=== PATIENT | male | born 1955 | race Caucasian/White ===

== ENCOUNTER 2025-04-27 16:49 | Inpatient (IN) | payer OTHER, MEDICAID, MEDICARE ==
[~2025-04-27] VITALS: Ht 165.1 cm; Wt 106.7 kg
[2025-04-27] VITALS (39 sets, daily range): BP systolic 46–155; BP diastolic 15–133; PULSE 73–99; RESP 10–50; TEMP 33–34.6; O2SAT 0–100
[~2025-04-27 16:49] MED LIST: CALCIUM CHLORIDE 1GM/10ML SYR IV ONE; EPINEPHRINE 0.1MG/ML (1:10,000) 10ML SYR ONE; SODIUM BICARBONATE 8.4% 50MEQ/50ML SYR IV ONE
[2025-04-27] MEDS ORDERED: EPINEPHRINE 5 MG in SODIUM CHLORIDE 0.9% 245 ML IV SCH (17:00)
[2025-04-27 17:16] LABS: MEAN PLATELET VOLUME 8.5 fl (7.4-10.4); RED BLOOD CELL COUNT 1.57 mill/uL (4.7-6.1); RED CELL DISTRIBUTION WIDTH 19.6 % (11.6-14.6)
[2025-04-27 17:26] LABS: HEMATOCRIT. 20.1 % (42.0-52.0); HEMOGLOBIN. 6.6 g/dL (14.0-18.0); PLATELET 17 x1000/uL (130-400)
[2025-04-27 17:30] LABS: CREATININE 1.3 mg/dL (0.6-1.3)
[2025-04-27 17:31] LABS: UREA NITROGEN BLOOD 46 mg/dL (9-23)
[2025-04-27 17:32] LABS: ASPARTATE AMINOTRANSFERASE 178 IU/L (<34); TROPONIN I HIGH SENSITIVITY 5 ng/L (3.0-53)
[2025-04-27 17:33] LABS: BILIRUBIN DIRECT 2.1 mg/dL (<=3.0); BILIRUBIN TOTAL 3.1 mg/dL (0.1-1.0); PROTEIN TOTAL 4.1 g/dL (6.0-8.3)
[2025-04-27 17:41] LABS: LYMPHOCYTES % MANUAL 82.0 % (20.0-50.0); MONOCYTES % MANUAL 6.0 % (2.0-8.0); NEUTROPHILS % MANUAL 12.0 % (45.0-75.0); NUCLEATED RED BLOOD CELLS 8 /100 WBC; PLATELET ESTIMATE MARKEDLY DECREASED
[2025-04-27] MEDS: SODIUM CHLORIDE 0.9% 1,000 ML IV ONE ×2 (17:44)
[2025-04-27] MEDS ORDERED: VANCOMYCIN 1000MG/250ML 250 ML IV SCH (17:45)
[2025-04-27] MEDS: CEFEPIME 2,000 MG in DEXT 5% WATER 100 ML IV SCH (17:47)
[2025-04-27 17:54] LABS: BG BASE EXCESS -9.5 mmol/L (-2.0-3.0); BG CARBOXYHEMOGLOBIN 1.5 % (0.5-1.5); BG DEOXYHEMOGLOBIN 14.6 % (0.0-5.0); BG FRACTION INSPIRED OXYGEN 100; BG HCO3 ACT 19.1 mmol/L (21.0-28.0); BG METHEMOGLOBIN 0.8 % (0.5-1.5); BG OXYGEN SATURATION 85.1 % (94.0-98.0); BG OXYHEMOGLOBIN 83.1 % (94.0-98.0); BG PCO2 58.4 mmHg (35.0-48.0); BG PEEP (cmH2O) 10.0 cmH2O; BG PH 7.132 (7.350-7.450); BG PO2 70.9 mmHg (83.0-108.0); BG SAMPLE SITE LEFT RADIAL; BG TIDAL VOLUME(mL) 450.0 mL; BG TOTAL HEMOGLOBIN 7.1 g/dL (13.5-17.5); BG VENT MODE VENT - AC; BG VENT RATE 16.0 set
[2025-04-27] MEDS ORDERED: SODIUM BICARBONATE 100 MEQ in SODIUM CHLORIDE 0.45% 900 ML IV SCH (18:00)
[2025-04-27] MEDS ORDERED: KETAMINE HCL 100 MG in SODIUM CHLORIDE 0.9% 98 ML IV ONE (18:15)
[2025-04-27] MEDS: ALBUTEROL (0.5%) 2.5MG/0.5ML NEB HHN ONE (18:20)
[2025-04-27] MEDS: KETAMINE HCL 100 MG in SODIUM CHLORIDE 0.9% 98 ML IV ONE (18:40)
[2025-04-27] MEDS: EPINEPHRINE 5 MG in SODIUM CHLORIDE 0.9% 245 ML IV PRN ×2 (18:40→21:30)
[2025-04-27] MEDS: DEXTROSE 50% WATER 50ML SYRINGE IV ONE (18:55)
[2025-04-27] MEDS: INSULIN REGULAR (HUMULIN R) 1000UNITS/10ML VIAL IV ONE (19:00)
[2025-04-27] MEDS: VANCOMYCIN 1G PREMIX 200 ML IV SCH (19:10)
[2025-04-27] MEDS ORDERED: ACETAMINOPHEN 650MG/20.3ML UDC NG PRN (19:15)
[2025-04-27] MEDS ORDERED: ACETAMINOPHEN 650MG SUPP PR PRN (19:15)
[2025-04-27] MEDS: FUROSEMIDE 40MG/4ML VIAL IVP ONE (19:30)
[2025-04-27] MEDS: MIDAZOLAM HCL 2 MG/2 ML VIAL IV ONE (19:32)
[2025-04-27] MEDS ORDERED: ONDANSETRON HCL 4MG/2ML INJ IV PRN ×2 (20:00)
[2025-04-27] MEDS ORDERED: LACTULOSE 20G/30ML UDC PO PRN (20:00)
[2025-04-27] MEDS ORDERED: IPRATROPIUM/ALBUTEROL 0.5-3(2.5)MG/3ML NEB HHN PRN ×2 (20:00)
[2025-04-27 20:05] LABS: MEAN PLATELET VOLUME 8.5 fl (7.4-10.4); RED BLOOD CELL COUNT 1.54 mill/uL (4.7-6.1); RED CELL DISTRIBUTION WIDTH 21.2 % (11.6-14.6)
[2025-04-27 20:15] LABS: PLATELET 14 x1000/uL (130-400)
[2025-04-27 20:16] LABS: HEMATOCRIT. 20.7 % (42.0-52.0); HEMOGLOBIN. 6.6 g/dL (14.0-18.0)
[2025-04-27 20:20] LABS: CREATININE 1.3 mg/dL (0.6-1.3); UREA NITROGEN BLOOD 35 mg/dL (9-23)
[2025-04-27 20:21] LABS: TROPONIN I HIGH SENSITIVITY 22 ng/L (3.0-53)
[2025-04-27 20:22] LABS: PHOSPHORUS 6.0 mg/dL (2.5-4.9)
[2025-04-27 20:25] LABS: INR 1.7
[2025-04-27 20:34] LABS: LYMPHOCYTES % MANUAL 36.0 % (20.0-50.0); MONOCYTES % MANUAL 12.0 % (2.0-8.0); NEUTROPHILS % MANUAL 52.0 % (45.0-75.0); NUCLEATED RED BLOOD CELLS 5 /100 WBC; PLATELET ESTIMATE MARKEDLY DECREASED
[2025-04-27] MEDS: NOREPINEPHRINE 8MG/250ML PMX 250 ML IV PRN (21:30)
[2025-04-27] MEDS ORDERED: IPRATROPIUM/ALBUTEROL 0.5-3(2.5)MG/3ML NEB NEB PRN (22:00)
[2025-04-27] MEDS: NOREPINEPHRINE 32 MG in DEXT 5% WATER 218 ML IV PRN (22:40)
[2025-04-27] MEDS: DEXTROSE 50% WATER 50ML SYRINGE IV SCH (22:57)
[2025-04-27] MEDS: CALCIUM GLUCONATE 100MG/ML 10ML VIAL IV SCH (22:58)
[2025-04-27] MEDS: INSULIN REGULAR (HUMULIN R) 1000UNITS/10ML VIAL IV SCH (22:59)
[2025-04-27] MEDS: PANTOPRAZOLE SODIUM 40 MG/VIAL IV SCH (22:59)
[2025-04-27] MEDS: SODIUM CHLORIDE 0.9% 1,000 ML IV SCH (22:59)
[2025-04-27 23:31] LABS: BG BASE EXCESS -16.6 mmol/L (-2.0-3.0); BG CARBOXYHEMOGLOBIN 0.8 % (0.5-1.5); BG DEOXYHEMOGLOBIN 1.8 % (0.0-5.0); BG FRACTION INSPIRED OXYGEN 100; BG HCO3 ACT 13.1 mmol/L (21.0-28.0); BG METHEMOGLOBIN 0.5 % (0.5-1.5); BG OXYGEN SATURATION 98.2 % (94.0-98.0); BG OXYHEMOGLOBIN 96.9 % (94.0-98.0); BG PCO2 49.6 mmHg (35.0-48.0); BG PEEP (cmH2O) 0 cmH2O; BG PH 7.039 (7.350-7.450); BG PO2 147.7 mmHg (83.0-108.0); BG SAMPLE SITE RIGHT RADIAL; BG TIDAL VOLUME(mL) 450.0 mL; BG TOTAL HEMOGLOBIN 8.3 g/dL (13.5-17.5); BG VENT MODE PRVC/AC; BG VENT RATE 20.0 set
[2025-04-28] VITALS (104 sets, daily range): BP systolic 47–188; BP diastolic 30–149; PULSE 76–104; RESP 10–28; TEMP 34.5–36.3; O2SAT 92–100
[2025-04-28] MEDS: SODIUM BICARBONATE 100 MEQ in DEXTROSE 5% WATER 900 ML IV SCH (01:42)
[2025-04-28] MEDS: CEFEPIME 2GM PREMIX 100ML IV SCH (02:58)
[2025-04-28] MEDS: METRONIDAZOLE 500 MG PREMIX 100 ML IV SCH (02:59)
[2025-04-28] MEDS: PHENYLEPHRINE 50MG/250ML PMX 250 ML IV PRN (04:35)
[2025-04-28] MEDS: VASOPRESSIN 20 UNIT in SODIUM CHLORIDE 0.9% 99 ML IV PRN (05:38)
[2025-04-28] MEDS: EPINEPHRINE 10 MG in SODIUM CHLORIDE 0.9% 240 ML IV PRN (05:43)
[2025-04-28] MEDS ORDERED: CEFEPIME 2GM IN DEXT 5% 100ML IV SCH (06:00)
[2025-04-28 06:01] LABS: CLARITY URINE TURBID (CLEAR); COLOR URINE DARK YELLOW (YELLOW); GLUCOSE URINE NEGATIVE (NEGATIVE); KETONES URINE NEGATIVE (NEGATIVE); LEUKOCYTE ESTERASE URINE 2+ (NEGATIVE); NITRITE URINE NEGATIVE (NEGATIVE); OCCULT BLOOD URINE 3+ (NEGATIVE); PH URINE 5.5 (4.5-8.0); PROTEIN URINE 2+ (NEGATIVE); SPECIFIC GRAVITY URINE 1.017 (1.005-1.030); UROBILINOGEN URINE 1.0 E.U./dL (0.2-1.0)
[2025-04-28] MEDS ORDERED: LACTULOSE ENEMA 1,000ML BOTTLE PR NR (06:17)
[2025-04-28 06:46] LABS: *AMPHETAMINES SCREEN URINE NEGATIVE (NEGATIVE)
[2025-04-28 06:47] LABS: *BARBITURATES SCREEN URINE NEGATIVE (NEGATIVE); *BENZODIAZEPINES SCREEN URINE NEGATIVE (NEGATIVE); *COCAINE SCREEN URINE NEGATIVE (NEGATIVE); CANNABINOID URINE SCREEN NEGATIVE (NEGATIVE); ECSTASY MDMA SCREEN URINE NEGATIVE (NEGATIVE); METHADONE URINE SCREEN NEGATIVE (NEGATIVE); OPIATES URINE SCREEN NEGATIVE (NEGATIVE); PHENCYCLIDINE URINE SCREEN NEGATIVE (NEGATIVE)
[2025-04-28 06:59] LABS: HEMATOCRIT. 24.2 % (42.0-52.0); HEMOGLOBIN. 8.0 g/dL (14.0-18.0); MEAN PLATELET VOLUME 11.0 fl (7.4-10.4); RED BLOOD CELL COUNT 1.99 mill/uL (4.7-6.1); RED CELL DISTRIBUTION WIDTH 28.1 % (11.6-14.6)
[2025-04-28 07:24] LABS: CREATININE 1.5 mg/dL (0.6-1.3)
[2025-04-28 07:25] LABS: LDL CHOLESTEROL 48 mg/dL (5-100); T4 FREE 0.37 ng/dL (0.89-1.76); TRIGLYCERIDE 46 mg/dL (0-150); UREA NITROGEN BLOOD 41 mg/dL (9-23)
[2025-04-28] MEDS: METHYLPREDNISOLONE SOD SUCC 40MG/ML (ACT-O-VIAL) IV SCH (07:25)
[2025-04-28 07:40] LABS: PLATELET 40 x1000/uL (130-400)
[2025-04-28 08:02] LABS: HEPATITIS A AB IGM NEGATIVE (Negative)
[2025-04-28 08:03] LABS: HEPATITIS B CORE AB IGM NEGATIVE (Negative); HEPATITIS C AB NON REACTIVE (Neg) (Negative)
[2025-04-28] MEDS ORDERED: SPIR50TA5 PO (08:04)
[2025-04-28] MEDS ORDERED: CARV3.1242 PO (08:04)
[2025-04-28 08:09] LABS: TROPONIN I HIGH SENSITIVITY 63 ng/L (3.0-53)
[2025-04-28] MEDS: DOPAMINE 400MG/250ML PREMIX 250 ML IV PRN (08:51)
[2025-04-28] MEDS: FOLIC ACID 1MG TABLET PO SCH (08:55)
[2025-04-28] MEDS: SODIUM ZIRCONIUM CYCLOSILICATE 10GM/PACKET PO SCH (08:55)
[2025-04-28] MEDS: THIAMINE HCL 100MG TABLET PO SCH (08:55)
[2025-04-28] MEDS ORDERED: THIAMINE HCL 100MG TABLET PO SCH (09:00)
[2025-04-28 09:05] LABS: BACTERIA URINE 4+
[2025-04-28 09:06] LABS: SQUAMOUS EPITHELIAL CELL URINE 3+ /lpf (RARE/1+)
[2025-04-28 09:07] LABS: WBC URINE 15-25 /hpf (0-2)
[2025-04-28 09:25] LABS: BG BASE EXCESS -16.1 mmol/L (-2.0-3.0); BG CARBOXYHEMOGLOBIN 1.1 % (0.5-1.5); BG DEOXYHEMOGLOBIN 7.2 % (0.0-5.0); BG FRACTION INSPIRED OXYGEN 80; BG HCO3 ACT 13.6 mmol/L (21.0-28.0); BG METHEMOGLOBIN 0.3 % (0.5-1.5); BG OXYGEN SATURATION 92.7 % (94.0-98.0); BG OXYHEMOGLOBIN 91.4 % (94.0-98.0); BG PCO2 50.0 mmHg (35.0-48.0); BG PH 7.051 (7.350-7.450); BG PO2 82.5 mmHg (83.0-108.0); BG SAMPLE SITE RIGHT RADIAL; BG TIDAL VOLUME(mL) 450.0 mL; BG TOTAL HEMOGLOBIN 9.2 g/dL (13.5-17.5); BG VENT MODE VENT - AC; BG VENT RATE 20.0 set
[2025-04-28] MEDS ORDERED: SODIUM CHLORIDE 0.9% 1,000 ML IV SCH (09:45)
[2025-04-28] MEDS ORDERED: MORPHINE SULFATE 250 MG in DEXT 5% WATER 225 ML IV PRN (12:00)
[2025-04-28] MEDS ORDERED: OCTREOTIDE 1,000 MCG in SODIUM CHLORIDE 0.9% 98 ML IV SCH (12:00)
[2025-04-28 12:25] LABS: FOLIC ACID (FOLATE) SERUM 21.36 ng/mL (>5.38); VITAMIN B12 SERUM > 2000 pg/mL (211-911)
[2025-04-28] MEDS: SODIUM BICARBONATE 150 MEQ in SODIUM CHLORIDE 0.9% 850 ML IV SCH (12:31)
[2025-04-28] MEDS: RIFAXIMIN 550 MG TABLET NG SCH (12:32)
[2025-04-28] MEDS ORDERED: CEFEPIME 2GM/100ML 100 ML IV SCH (14:00)
[2025-04-28] MEDS ORDERED: LACTULOSE 20G/30ML UDC NG SCH (14:00)
[2025-04-28] MEDS ORDERED: PHYTONADIONE 10 MG in DEXTROSE 5% WATER 49 ML IV NR (20:00)
[2025-04-28 20:24] LABS: BAND% 4.0 % (1.0-6.0); LYMPHOCYTES % MANUAL 36.0 % (20.0-50.0); MONOCYTES % MANUAL 20.0 % (2.0-8.0); NEUTROPHILS % MANUAL 40.0 % (45.0-75.0); NUCLEATED RED BLOOD CELLS 9 /100 WBC; PLATELET ESTIMATE MARKEDLY DECREASED
[2025-04-29] MEDS ORDERED: LACTULOSE ENEMA 1,000ML BOTTLE PR SCH (09:00)
== END 2025-04-28 14:45 | DRG 871 ==
LOC: ER 16:49 → EDBD 16:49 → MICUNO 18:44 → EDBEDREQ 18:46 → EDBEDREQTM 18:46 → ENRESERV 19:01
PROVIDERS: ADMIT Internal Medicine; ATTEND Internal Medicine
PROC: 0BH17EZ Insertion of Endotracheal Airway into Trachea, Via Natural or Artificial Opening (ICD-10-PCS; principal; 2025-04-27)
PROC: 5A12012 Performance of Cardiac Output, Single, Manual (ICD-10-PCS; 2025-04-27)
PROC: 5A1935Z Respiratory Ventilation, Less than 24 Consecutive Hours (ICD-10-PCS; 2025-04-27)
PROC: 30233N1 Transfusion of Nonautologous Red Blood Cells into Peripheral Vein, Percutaneous Approach (ICD-10-PCS; 2025-04-27)
PROC: 06HY33Z Insertion of Infusion Device into Lower Vein, Percutaneous Approach (ICD-10-PCS; 2025-04-27)
PROC: B54NZZA Ultrasonography of Left Upper Extremity Veins, Guidance (ICD-10-PCS; 2025-04-27)
PROC: 30233R1 Transfusion of Nonautologous Platelets into Peripheral Vein, Percutaneous Approach (ICD-10-PCS; 2025-04-28)
DX: A41.9 Sepsis, unspecified organism (principal); J96.01 Acute respiratory failure with hypoxia; R65.21 Severe sepsis with septic shock; K65.2 Spontaneous bacterial peritonitis; E87.4 Mixed disorder of acid-base balance; D61.818 Other pancytopenia; D68.4 Acquired coagulation factor deficiency; E87.1 Hypo-osmolality and hyponatremia; N17.9 Acute kidney failure, unspecified; G93.40 Encephalopathy, unspecified; I46.9 Cardiac arrest, cause unspecified; Z66 Do not resuscitate; Z51.5 Encounter for palliative care; R57.0 Cardiogenic shock; E78.5 Hyperlipidemia, unspecified; E87.5 Hyperkalemia; E88.09 Other disorders of plasma-protein metabolism, not elsewhere classified; D53.9 Nutritional anemia, unspecified; E83.51 Hypocalcemia; E83.39 Other disorders of phosphorus metabolism; E87.6 Hypokalemia; K70.31 Alcoholic cirrhosis of liver with ascites; E87.8 Other disorders of electrolyte and fluid balance, not elsewhere classified; R73.9 Hyperglycemia, unspecified; E83.42 Hypomagnesemia; I49.3 Ventricular premature depolarization; F10.10 Alcohol abuse, uncomplicated
CPT/HCPCS: 31720; 36415; 36600; 71045; 76700; 80048; 80061; 80076; 80305; 80320; 81003; 82140; 82375; 82550; 82607; 82728; 82746; 82805; 82962; 83036; 83540; 83550; 83605; 83735; 83880; 83930; 83935; 84100; 84439; 84443; 84481; 84484; 85025; 85362; 85379; 85384; 86705; 86709; 86850; 86900; 86920; 87077; 87186; 87340; 93005; 94002; 94003; 94070; 94640; 94664; 98960; 99291; 99292; A4606; J0612; J0690; J0692; J1265; J1815; J1938; J2250; J2354; J2371; J2470; J2919; J3373; J3430; J3490; J7030; J7050; J7060; J7070; P9016; P9034; G0480